=== PATIENT | female | born 1985 | race American Indian/Alaskan Native ===

== ENCOUNTER 2018-02-22 21:23 | Emergency (ER) | payer SELFPAY ==
[2018-02-23] MEDS ORDERED: ULTRAM PO ONE (02:45)
[2018-02-23] MEDS ORDERED: ULTRAM ONE (02:48)
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
[2018-02-23 04:11] VITALS: BP 120/72
== END 2018-02-23 04:11 | disposition home or self-care (01) ==
LOC: ED 21:23
DX: S16.1XXA Strain of muscle, fascia and tendon at neck level, initial encounter (principal); S39.012A Strain of muscle, fascia and tendon of lower back, initial encounter; V49.9XXA Car occupant (driver) (passenger) injured in unspecified traffic accident, initial encounter; Y93.89 Activity, other specified; Y99.8 Other external cause status; Y92.410 Unspecified street and highway as the place of occurrence of the external cause
CPT/HCPCS: 72040; 72100; 99283